=== PATIENT | male | born 1965 | race Caucasian/White ===

== ENCOUNTER → 2017-08-16 13:33 | Outpatient (CLI) | payer MEDICAID, SELFPAY ==
[2017-08-16 12:11] VITALS: BP 116/78; BMI 34.2
--- NOTE | 2017-08-16 13:50 | RAD_ITS ---
STUDY: X-RAY CHEST REASON FOR EXAM: Male, 52 years old. Shortness of breath and cough. TECHNIQUE: PA and lateral views of the chest. COMPARISON: Prior comparison studies are not available for review at this time. FINDINGS: Lungs are underexpanded. There is increased attenuation at the left lung base that may represent airspace disease or atelectasis. There is suggestion for small left-sided pleural effusion. There is perihilar interstitial thickening. There may be right upper lobe subsegmental atelectasis versus pulmonary fibrosis. Normal size heart. Normal mediastinum and shai. Normal visualized pulmonary arteries. There is atherosclerotic calcification of the aortic arch with tortuosity. Normal visualized thoracic spine. Normal visualized ribs, clavicles, and shoulders. There is no demonstrated abnormality of the visualized soft tissue structures of the upper abdomen. RAD/Chest PA and Lateral IMPRESSION: Left basilar airspace consolidation possibly representing pneumonia with small pleural effusion. Suggest radiographic follow-up after treatment to exclude neoplasia. Electronically Signed: Lupe Vaz MD at 19:48 EST , Service support ,
== END ==
PROVIDERS: Family Provider Nurse Practitioner Family; PCP Nurse Practitioner Family; Visit Provider Nurse Practitioner Acute Care
DX: R05 Cough (principal)
CPT/HCPCS: 71046

== ENCOUNTER → 2017-08-21 09:10 | Outpatient (CLI) | payer MEDICAID, SELFPAY ==
[2017-08-21 08:26] VITALS: BP 127/80
[2017-08-21 08:28] VITALS: BMI 34.2
== END ==
PROVIDERS: Visit Provider Nurse Practitioner Acute Care
DX: Z93.0 Tracheostomy status (principal)
CPT/HCPCS: 87070; 87075; 87076; 87077; 87186; 87205

== ENCOUNTER → 2017-08-30 13:12 | Outpatient (CLI) | payer MEDICAID, SELFPAY ==
[2017-08-16 12:11] VITALS: BP 116/78; BMI 34.2
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
--- NOTE | 2017-08-30 13:15 | RAD_ITS ---
STUDY: SWALLOWING STUDY REASON FOR EXAM: Male, 52 years old. Dysphagia. TECHNIQUE: The examination was performed with Speech Pathology in attendance. Under fluoroscopic observation, the patient ingested thin barium, thick barium, barium pudding, and barium coated cracker. FLUOROSCOPY TIME: 1:06 minutes/seconds. 818 fluoroscopic images were obtained. RADIOLOGIST INVOLVEMENT: Radiologist was present and providing direct supervision. COMPARISON: None. FINDINGS: The following was observed during swallowing of the various mixtures of barium: Thin Barium: There was no evidence of aspiration or laryngeal penetration. Barium Pudding: There was no evidence of aspiration or laryngeal penetration. Barium Coated Cracker: There was no evidence of aspiration or laryngeal penetration. RAD/Swallowing Function w/Video IMPRESSION: Normal tailored barium swallow study. No evidence of increased risk for aspiration. The swallow study findings were discussed with the patient by the speech pathologist at the conclusion of the examination. Please see speech pathology report for more information and recommendations. Electronically Signed: Dom Perez MD at 14:01 EST Tel [phone], Service support ,
== END ==
PROVIDERS: Family Provider Nurse Practitioner Family; PCP Nurse Practitioner Family; Visit Provider Nurse Practitioner Acute Care
DX: Z93.0 Tracheostomy status (principal)
CPT/HCPCS: 74230; 92611

== ENCOUNTER → 2017-12-05 11:28 | Outpatient (CLI) | payer MEDICAID, SELFPAY ==
--- NOTE | 2017-12-05 11:47 | EKG12_ITS ---
Test Reason : PRE-OP Blood Pressure : / mmHG Vent. Rate : 097 BPM Atrial Rate : 097 BPM P-R Int : 126 ms QRS Dur : 084 ms QT Int : 322 ms P-R-T Axes : 055 056 027 degrees QTc Int : 408 ms Normal sinus rhythm Normal ECG Confirmed by PETROS PAYNE, DAVID ([id number]), multimedia editor ROB GUAJARDO ([id number]) on 12/06/2017 11:03:31 AM Referred By: DORON Confirmed By:DAVID MORRELL MD
[2017-12-05 12:48] LABS: Hematocrit 41.7 % (40-54); Hemoglobin 15.2 g/dl (13.0-16.5); Mean Corp Hgb Conc 36.5 g/gl (32-36); Mean Corpuscular Hgb 30.5 pg (27.0-32.0); Mean Corpuscular Volume 83.6 fL (80-94); Mean Platelet Vol. 10.1 fl (6.2-12.0); Platelet Count 134 K/mm3 (150-450); RBC Distribution Width CV 13.3 % (11.6-14.6); RBC Distribution Width SD 40.2 fl (35.1-43.9); Red Blood Count 4.99 M/mm3 (4.6-6.2); White Blood Count 6.8 K/mm3 (4.4-11.0)
[2017-12-05 12:52] LABS: Scan Indicated on CBC? Y/N NO
[2017-12-05 13:07] LABS: Anion Gap 10 (5-15); BUN 11 mg/dL (7-18); BUN/Creat Ratio 10.1 RATIO (10-20); Calcium,Total 8.9 mg/dL (8.5-10.1); Chloride 104 mmol/L (98-107); Creatinine, Serum 1.09 mg/dL (0.70-1.30); EST Glomerular Filtration Rate 76 mL/min (>60); Est Glom Filt Rate - Afr Amer 92 mL/min (>60); Glucose 201 mg/dL (74-106); Potassium 3.9 mmol/L (3.5-5.1); Sodium Level 141 mmol/L (136-145)
[2017-12-05 13:17] LABS: Hemoglobin A1c 8.3 % (4.2-6.3)
== END ==
PROVIDERS: Family Provider Nurse Practitioner Family; PCP Nurse Practitioner Family; Visit Provider Physician Assistant
DX: Z01.818 Encounter for other preprocedural examination (principal); E11.9 Type 2 diabetes mellitus without complications
CPT/HCPCS: 36415; 80048; 83036; 85027; 93005

== ENCOUNTER → 2018-01-07 08:45 | Outpatient (CLI) | payer MEDICAID, SELFPAY | PROVIDERS: Family Provider Nurse Practitioner Family; PCP Nurse Practitioner Family; Visit Provider Orthopaedic Surgery | DX: Z01.812 Encounter for preprocedural laboratory examination (principal) ==

== ENCOUNTER → 2018-01-31 09:05 | Outpatient (CLI) | payer MEDICAID, SELFPAY ==
[2018-01-31 10:23] LABS: Mean Corpuscular Hgb 30.6 pg (27.0-32.0); Mean Corpuscular Volume 85.7 fL (80-94); Mean Platelet Vol. 10.5 fl (6.2-12.0); Platelet Count 143 K/mm3 (150-450); RBC Distribution Width CV 12.6 % (11.6-14.6); RBC Distribution Width SD 38.8 fl (35.1-43.9)
[2018-01-31 10:24] LABS: Mean Corp Hgb Conc 35.7 g/gl (32-36); Scan Indicated on CBC? Y/N NO
[2018-01-31 10:31] LABS: Anion Gap 9 (5-15); BUN 12 mg/dL (7-18); BUN/Creat Ratio 10.9 RATIO (10-20); Calcium,Total 9.5 mg/dL (8.5-10.1); Chloride 102 mmol/L (98-107); EST Glomerular Filtration Rate 75 mL/min (>60); Est Glom Filt Rate - Afr Amer 91 mL/min (>60); Glucose 160 mg/dL (74-106); Potassium 4.4 mmol/L (3.5-5.1); Sodium Level 141 mmol/L (136-145)
[2018-01-31 10:35] LABS: Hemoglobin A1c 6.9 % (4.2-6.3)
== END ==
PROVIDERS: Family Provider Nurse Practitioner Family; PCP Nurse Practitioner Family; Visit Provider Orthopaedic Surgery
DX: E11.9 Type 2 diabetes mellitus without complications (principal); S46.012D Strain of muscle(s) and tendon(s) of the rotator cuff of left shoulder, subsequent encounter
CPT/HCPCS: 36415; 80048; 83036; 85027

== ENCOUNTER 2018-02-17 10:55 | Day surgery (SDC) | payer MEDICAID, SELFPAY ==
[2018-02-17] VITALS (11 sets, daily range): BP systolic 128–149; BP diastolic 71–84; PULSE 16–99; RESP 16–20; TEMP 36.2–36.7; O2SAT 97–100; BMI 35.2
[2018-02-17 11:45] LABS: Bedside Glucose 140 mg/dL (70-110)
[2018-02-17] MEDS: Cefazolin 2 GM in 0.9% Normal Saline 100 ML IV (12:36)
[2018-02-17] MEDS: Bupivacaine Mpf 0.5% 30 ML VIAL (13:05)
--- NOTE | 2018-02-17 14:12 | PCM.IMDPSTOP ---
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/p injury Post-Operative Diagnosis: SAIS, AC separation, biceps tendinopathy with subluxation, healed glenoid fx and rotator cuff tear left shoulder Surgery/Procedure Performed:: ASD, Coplane distal clavicle, biceps tenotomy and rotator cuff repair left shoulder Description of Surgical Findings:: see note Estimated Blood Loss: minimal Specimen's removed: none Type of Anesthesia:: General/Regional ASA Class: ASA2 Mod Systematic Disease - Admit VTE Documentation VTE Present on Admission: No VTE Mechan Device Prophylaxis: SCD's VTE Pharm Prophylaxis ordered?: No Reason prophylaxis not ordered:: Treatment Not Indicated
--- NOTE | 2018-02-17 14:16 | OP.PN_ITS ---
Immediate Post-Op Note Date of Procedure: 02/17/18 Primary Surgeon/Physician: Sahil Serrano assistant bookkeeper: Rashel Brizuela Pre-Operative Diagnosis: Internal derangemen left shoulder with nerve damage s/ p injury Post-Operative Diagnosis: SAIS, AC separation, biceps tendinopathy with subluxation, healed glenoid fx and rotator cuff tear left shoulder Surgery/Procedure Performed:: ASD, Coplane distal clavicle, biceps tenotomy and rotator cuff repair left shoulder Description of Surgical Findings:: see note Estimated Blood Loss: minimal Specimen's removed: none Type of Anesthesia:: General/Regional ASA Class: ASA2 Mod Systematic Disease - Admit VTE Documentation VTE Present on Admission: No VTE Mechan Device Prophylaxis: SCD's VTE Pharm Prophylaxis ordered?: No Reason prophylaxis not ordered:: Treatment Not Indicated
[2018-02-17 15:05] LABS: Bedside Glucose 156 mg/dL (70-110)
[2018-02-17] MEDS: HYDROcodone Bitartrate/Apap 5/325 Tablet PO (16:32)
== END 2018-02-17 16:54 | disposition home or self-care (01) ==
LOC: SDC 10:56 → AC 10:57
PROVIDERS: Visit Provider Orthopaedic Surgery
PROC: (CPT 29827; principal; 2018-02-17 12:10)
DX: S46.012A Strain of muscle(s) and tendon(s) of the rotator cuff of left shoulder, initial encounter (principal); S43.492A Other sprain of left shoulder joint, initial encounter; S43.102A Unspecified dislocation of left acromioclavicular joint, initial encounter; S42.142A Displaced fracture of glenoid cavity of scapula, left shoulder, initial encounter for closed fracture; M75.22 Bicipital tendinitis, left shoulder; M75.42 Impingement syndrome of left shoulder; R53.1 Weakness; E11.9 Type 2 diabetes mellitus without complications; Z79.84 Long term (current) use of oral hypoglycemic drugs; Z79.52 Long term (current) use of systemic steroids; Z79.891 Long term (current) use of opiate analgesic; Z87.891 Personal history of nicotine dependence; X58.XXXA Exposure to other specified factors, initial encounter; Y93.9 Activity, unspecified; Y92.9 Unspecified place or not applicable; Y99.9 Unspecified external cause status
CPT/HCPCS: 23405; 29822; 29826; 29827; 82962; J7120; J2405

== ENCOUNTER → 2019-06-05 10:37 | Outpatient (CLI) | payer MEDICAID, SELFPAY ==
[2019-06-05 10:24] VITALS: BMI 34.2
--- NOTE | 2019-06-05 10:43 | VDLE_ITS ---
Reason For Study: RT CALF PAIN RIGHT GSV is normal. CFV is compressible, spontaneous, phasic, competent and demonstrates normal augmentation. FV is compressible, spontaneous, phasic, competent and demonstrates normal augmentation. POP V is compressible, spontaneous, phasic, competent and demonstrates normal augmentation. T/P Trunk is compressible. PTV is compressible. RT PerV is compressible. Procedure Exam performed in department. A preliminary report was called and/or faxed to DEEPTI KHALIL. Interpretation Summary Deep veins of the right lower extremity are patent and compressible segmentally. There is no evidence of right lower extremity deep vein thrombosis. Valvular competence appears intact within the proximal deep venous system on the right . The right great saphenous vein appears patent and compressible segmentally. Ordering Physician: Deepti Miranda Referring Physician: Deepti Miranda Performed By: Josefina Reece, GLORIA, RVT
== END ==
DX: M79.661 Pain in right lower leg (principal)
CPT/HCPCS: 93971

== ENCOUNTER 2020-01-04 06:52 | Day surgery (SDC) | payer MEDICAID, SELFPAY ==
[2019-06-05 10:24] VITALS: BMI 34.2
[2020-01-04] VITALS (9 sets, daily range): BP systolic 86–140; BP diastolic 56–91; PULSE 71–78; RESP 16; TEMP 36.2–36.4; O2SAT 91–100; BMI 34.8
[2020-01-04] MEDS: Lactated Ringers 1,000 ML 100 ML IV (07:26)
[2020-01-04 07:40] LABS: Bedside Glucose 177 mg/dL (70-110)
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
--- NOTE | 2020-01-04 12:47 | OP.COLON_ITS ---
Patient Name: Niall Munoz Procedure Date: 01/04/2020 12:42 PM Date of : 1965 Age: 54 Procedure: Colonoscopy Indications: Screening for colorectal malignant neoplasm Providers: Jaylene Remy MD Referring MD: Deepti Harmon [facility] Medicines: Monitored Anesthesia Care Patient Profile: This is a 54 year old male. Last Colonoscopy: none. The patient's first colonoscopy is today. Complications: No immediate complications. Procedure: Pre-Anesthesia Assessment: - Prior to the procedure, a History and Physical was performed, and patient medications and allergies were reviewed. The patient's tolerance of previous anesthesia was also reviewed. The risks and benefits of the procedure and the sedation options and risks were discussed with the patient. All questions were answered, and informed consent was obtained. Prior Anticoagulants: The patient has taken no previous anticoagulant or antiplatelet agents. ASA Grade Assessment: Per anesthesia. After reviewing the risks and benefits, the patient was deemed in satisfactory condition to undergo the procedure. After I obtained informed consent, the scope was passed under direct vision. Throughout the procedure, the patient's blood pressure, pulse, and oxygen saturations were monitored continuously. The colonoscopy was performed without difficulty. The patient tolerated the procedure well. The quality of the bowel preparation was adequate. Findings: The perianal and digital rectal examinations were normal. The exam was otherwise without abnormality on direct and retroflexion views. Impression: - The examination was otherwise normal on direct and retroflexion views. - No specimens collected. Recommendation: - Discharge patient to home. - Resume previous diet. - Continue present medications. - Repeat colonoscopy in 10 years for screening purposes. Procedure Code(s): --- Professional --- 65411, Colonoscopy, flexible; diagnostic, including collection of specimen(s) by brushing or washing, when performed (separate procedure) Diagnosis Code(s): --- Professional --- Z12.11, Encounter for screening for malignant neoplasm of colon CPT copyright 2017 [employer]. All rights reserved. The codes documented in this report are preliminary and upon platform inspector review may be revised to meet current compliance requirements. MD Jaylene Higgins MD 01/04/2020 12:47:02 PM This report has been signed electronically. Number of Addenda: 0 Note Initiated On: 01/04/2020 12:42 PM
--- NOTE | 2020-01-04 12:47 | OP.CCLET_ITS ---
01/04/2020 Deepti Harmon [facility] Re : Colonoscopy procedure for Niall Kelly [facility] This procedure was performed on Saturday, January 04, 2020. My impressions and recommendations are as follows: Impressions : - The examination was otherwise normal on direct and retroflexion views. - No specimens collected. Recommendations : - Discharge patient to home. - Resume previous diet. - Continue present medications. - Repeat colonoscopy in 10 years for screening purposes. My findings are described in the full procedure note, which is enclosed. If I can be of further assistance, please feel free to contact me at Doctor phone number(s): , Work: . Sincerely, MD Jaylene Higgins MD 01/04/2020 12:47:02 PM This report has been signed electronically.
== END 2020-01-04 09:25 | disposition home or self-care (01) ==
LOC: EN 06:54 → AC 06:55
PROVIDERS: Anesthesiology; Visit Provider Surgery
PROC: 0DJD8ZZ Inspection of Lower Intestinal Tract, Via Natural or Artificial Opening Endoscopic (ICD-10-PCS; CPT 45378; principal; 2020-01-04 07:55)
DX: Z12.11 Encounter for screening for malignant neoplasm of colon (principal); Z87.891 Personal history of nicotine dependence; E11.9 Type 2 diabetes mellitus without complications; R13.10 Dysphagia, unspecified; Z11.59 Encounter for screening for other viral diseases
CPT/HCPCS: 45378; 82962; 87635; G2023; J7120; U0003

== ENCOUNTER 2020-04-11 18:57 | Inpatient (IN) | payer MEDICAID, SELFPAY ==
[2020-01-04 07:10] VITALS: BMI 34.8
[2020-04-11] VITALS (18 sets, daily range): BP systolic 101–146; BP diastolic 61–85; PULSE 87–107; RESP 11–23; TEMP 36.4–36.9; O2SAT 93–100; BMI 36.1; BMI 35.5
--- NOTE | 2020-04-11 19:11 | EKG12_ITS ---
Test Reason : CP Blood Pressure : / mmHG Vent. Rate : 106 BPM Atrial Rate : 106 BPM P-R Int : 126 ms QRS Dur : 070 ms QT Int : 314 ms P-R-T Axes : 041 058 027 degrees QTc Int : 417 ms Sinus tachycardia Otherwise normal ECG Confirmed by RICA PAYNE, TANGELA ([id number]), film and video editor PAOLA SALGUERO ([id number]) on 04/19/2020 8:56:37 AM Referred By: Osmin Garza Confirmed By:TASHIA STRAUSS MD
--- NOTE | 2020-04-11 19:12 | ED.DCSUM_ITS ---
History of Present Illness Chief Complaint: Chest Pain Informant: Patient Onset: Yesterday Narrative: Patient presents for evaluation of chest pain initially started yesterday at rest in the afternoon. States it was mild went away around 8 PM. This morning while at work around 8 AM things started to return. He states with his work activities symptoms were worsening. 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 He states severe heaviness with nausea and sweats. He states he threw up a couple times. He went home at 5 PM, however upon arrival ED symptoms are subsiding. However still states symptoms are 5 out of 10. Denies any radicular symptoms. Denies any cough. He has history of diabetes remote tobacco quitting in 2018. States father had [place] in his 50s. Denies hypertension or hypercholesterolemia. He had a stress test last time in 2001. There is no heart caths in the past. States currently he is not nauseated. Prior similar symptoms: Yes Past Medical History - Allergies and Home Meds Allergies/Adverse Reactions: Allergies No Known Allergies Allergy (Verified 04/11/20 18:58) [facility] - Past Medical History: - - Diabetes Smoking Status: Former smoker Review of Systems General: Denies: Chills, Fever, Sweats Eyes: Denies: Visual changes - bilaterally, Diplopia ENT: Denies: Rhinorrhea, Sore throat Cardiovascular: Reports: Chest pain. Denies: Palpitations Respiratory: Reports: Dyspnea. Denies: Cough, Dyspnea on exertion Gastrointestinal: Denies: Abdominal pain, Nausea, Vomiting, Diarrhea, Melena, Hematochezia Genitourinary: Denies: Dysuria, Hematuria, Frequency Musculoskeletal: Denies: Back pain, Extremity Pain Skin: Denies: Rash, Wounds Neurological: Denies: Headache, Weakness, Numbness Physical Exam Vital Signs/Narrative: Vital Signs Temp Pulse Resp BP Pulse Ox 04/11/20 19:01 100 04/11/20 18:58 98.5 F 107 H 18 123/77 H 100 Inital Vital Signs reviewed: Yes General: Well nourished, Well developed, No Acute Distress, - - Mild clammy Head: Normocephalic, Atraumatic Eyes: Perrl, EOMI ENT: Moist mucous membranes, No rhinorrhea Neck: Supple, Nontender Cardiovascular: Regular rate, Regular rhythm, No murmurs Respiratory: No distress, CTA bilaterally, Chest nontender Abdomen: Soft, Nontender, Nondistended, Normal bowel sounds Back: Nontender, Normal Inspection Extremities: Nontender, No edema Skin: Normal color, No rash Neurological: Alert, Oriented x3, Cranial nerves II-XII grossly intact, Normal Strength, Normal Sensation Psychological: Normal affect, Normal Mood Diagnostic/Tx/Re-eval Clinical Impression(s) from Imaging Studies Chest X-Ray 04/11/20 19:20 IMPRESSION: No acute pulmonary pathology of the chest. Left lung base pleural plaque. Left rib and shoulder injuries. Electronically Signed: Theron Deleon DO at 20:39 EDT Tel [phone], Service support , Abnormal Lab Results 04/11/20 04/11/20 04/11/20 19:04 19:04 19:04 WBC 11.8 H RBC 4.50 L Hgb 14.5 Hct 40.8 MCV 90.7 MCH 32.2 H MCHC 35.5 RDW Std Deviation 40.8 RDW Coeff of Gonzalez 12.6 Plt Count 144 L MPV 10.8 Immature Gran % (Auto) 0.600 Neut % (Auto) 84.5 H Lymph % (Auto) 7.8 L [place] % (Auto) 6.7 Eos % (Auto) 0.1 Baso % (Auto) 0.3 Absolute Neuts (auto) 10.0 H Absolute Lymphs (auto) 0.92 Nucleated RBC % 0 PT 14.5 INR 1.2 APTT 27.9 Sodium 137 Potassium 4.6 Chloride 104 Carbon Dioxide 26.0 Anion Gap 7 BUN 24 H Creatinine 2.59 H Estim Creat Clear Calc 30.11 Est GFR (MDRD) Af Amer 34 L Est GFR (MDRD) Non-Af 28 L BUN/Creatinine Ratio 9.3 L Glucose 240 H Calcium 9.4 Troponin I < 0.015 - EKG Initial EKG Interpretation: Sinus Rhythm - Sinus rate of 106, there is no ST changes. Isolated T wave inversion in leads III. - Medical Decision Making Patient EKG nonspecific T wave inversion in leads III. Does have concerning symptoms for angina along with risk factors. Cardiac work-up negative troponin at this time creatinine 2.59 up from comparison in 2018 which was normal. He had a couple emesis today. Been tolerating oral intake. Initially given 1 nitroglycerin after aspirin his blood pressure dropped to the 90s. He did have fluids running. Blood pressure improved to the 110s, still had pressure of 2-3, nitro drip was started which improved his symptoms. There is no titration needed. Blood pressure remained stable. Patient's heart score is a 5. I spoke with maintenance service supervisor Dr. Sotelo due to angina concerns and noted his RAUL. With a normal troponin reports no heparin at this time, unless troponin becomes elevated. He requires hydration throughout the night, he will see the patient in the morning for management plans. I will speak with hospitalist for admission. - Critical Care Time Critical care time (excluding procedures): 30-74 minutes, Discussing w/Co nsultants, Arranging Admission or Transfer ED Disposition - Plan for ED Patient: Disposition: Acute Care Hospital [facility], [place] Diagnosis: Chest pain, angina, RAUL (acute kidney injury) [facility]: [facility]Deepti Harmon [Primary Care Provider] -
--- NOTE | 2020-04-11 19:20 | RAD_ITS ---
STUDY: X-RAY CHEST REASON FOR EXAM: Male, 54 years old. CHEST PAIN THAT STARTED YESTERDAY, WORSENED TODAY, SOB, N/V. TECHNIQUE: Frontal view COMPARISON: 08/16/2017 FINDINGS: The lungs are not fully expanded. Probable left basilar calcified pleural plaque. Normal size heart. Normal mediastinum and shai. Normal visualized pulmonary arteries. Normal visualized aortic arch and descending thoracic aorta. Normal visualized thoracic spine. Old left rib fractures. Depressed acromion at the AC joint is again noted at the left shoulder. Old left scapular injury. There is no demonstrated abnormality of the visualized soft tissue structures of the upper abdomen. RAD/Chest 1 View (Portable) IMPRESSION: No acute pulmonary pathology of the chest. Left lung base pleural plaque. Left rib and shoulder injuries. Electronically Signed: Theron Deleon DO at 20:39 EDT Tel [phone], Service support ,
[2020-04-11 19:25] LABS: Absolute Lymphocyte Count 0.92 X10^3/uL (0.83-4.51); Basophil# 0.04 X10^3/uL; Basophil% 0.3 % (0-1); Eosinophil# 0.01 X10^3/uL; Eosinophils% 0.1 % (0-5); Hematocrit 40.8 % (40-54); Hemoglobin 14.5 g/dL (13.0-16.5); Lymphocyte # 0.92 X10^3/ul (4.0); Lymphocyte % 7.8 % (19-41); Mean Corp Hgb Conc 35.5 g/dL (32-36); Mean Corpuscular Hgb 32.2 pg (27.0-32.0); Mean Corpuscular Volume 90.7 fL (80-94); Mean Platelet Vol. 10.8 fl (6.2-12.0); Monocyte# 0.79 X10^3/uL; Monocyte% 6.7 % (0-10); NRBC Flagged by Analyzer 0 % (0-5); Neutrophil # 10.01 X10^3/uL (2.7-7.7); Neutrophil % 84.5 % (47-70); Platelet Count 144 K/mm3 (150-450); RBC Distribution Width CV 12.6 % (11.6-14.6); RBC Distribution Width SD 40.8 fl (35.1-43.9); White Blood Count 11.8 K/mm3 (4.4-11.0)
[2020-04-11 19:30] LABS: International Normalized Ratio 1.2; Prothrombin Time (Protime)PT. 14.5 SECONDS (11.7-14.9)
[2020-04-11 19:31] LABS: Partial Thromboplast Time 27.9 Seconds (24.1-36.2)
[2020-04-11 19:36] LABS: Anion Gap 7 (5-15); BUN 24 mg/dL (7-18); BUN/Creat Ratio 9.3 RATIO (10-20); Calcium,Total 9.4 mg/dL (8.5-10.1); Chloride 104 mmol/L (98-107); Creatinine, Serum 2.59 mg/dL (0.70-1.30); EST Glomerular Filtration Rate 28 mL/min (>60); Est Glom Filt Rate - Afr Amer 34 mL/min (>60); Estimated Creatinine Clearance 30.11 ml/min; Glucose 240 mg/dL (74-106); Potassium 4.6 mmol/L (3.5-5.1); Sodium Level 137 mmol/L (136-145)
[2020-04-11] MEDS: 0.9% Normal Saline 1,000 ML 100 ML IV ×2 (19:38→22:59)
[2020-04-11] MEDS: Nitroglycerin SL (ED/IMG/CATH) 0.4 MG TABLET SUBLINGUAL (19:38)
[2020-04-11] MEDS: Aspirin 81 MG TAB.CHEW 324 MG PO (19:38)
--- NOTE | 2020-04-11 19:46 | NURSING ---
ONLY GIVEN 1 DOSE OF NITRO DUE TO BLOOD PRESSURE DROPPING TO 99/56 ON REASSESSMENT AFTER FIRST DOSE. DR. ZAPATA INFORMED
[2020-04-11] MEDS: Nitroglycerin Infusion 250 ML 3 MG CONT INF (20:28)
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
--- NOTE | 2020-04-11 22:28 | EKG12_ITS ---
Test Reason : AM EKG Blood Pressure : / mmHG Vent. Rate : 079 BPM Atrial Rate : 079 BPM P-R Int : 110 ms QRS Dur : 084 ms QT Int : 352 ms P-R-T Axes : 031 052 027 degrees QTc Int : 403 ms Sinus rhythm with short MS Otherwise normal ECG When compared with ECG of 12-APR-2020 06:04, MANUAL COMPARISON REQUIRED, DATA IS UNCONFIRMED Confirmed by RICA PAYNE, TANGELA ([id number]), continuity editor PAOLA SALGUERO ([id number]) on 04/19/2020 9:16:45 AM Referred By: Osmin Garza Confirmed By:TASHIA STRAUSS MD
[2020-04-12] VITALS (20 sets, daily range): BP systolic 97–123; BP diastolic 55–93; PULSE 73–87; RESP 6–23; TEMP 36.6–37.2; O2SAT 93–100
[2020-04-12 00:11] LABS: Bedside Glucose 131 mg/dL (70-110)
[2020-04-12 01:57] LABS: Absolute Lymphocyte Count 1.91 X10^3/uL (0.83-4.51); Absolute Neutrophil Count 4.9 X10^3/uL (2.0-7.7); Basophil# 0.05 X10^3/uL; Basophil% 0.6 % (0-1); Eosinophil# 0.05 X10^3/uL; Eosinophils% 0.6 % (0-5); Hematocrit 35.1 % (40-54); Hemoglobin 12.6 g/dL (13.0-16.5); Lymphocyte # 1.91 X10^3/ul (4.0); Lymphocyte % 24.6 % (19-41); Mean Corp Hgb Conc 35.9 g/dL (32-36); Mean Corpuscular Volume 89.1 fL (80-94); Mean Platelet Vol. 10.6 fl (6.2-12.0); Monocyte# 0.89 X10^3/uL; Monocyte% 11.5 % (0-10); NRBC Flagged by Analyzer 0 % (0-5); Neutrophil # 4.85 X10^3/uL (2.7-7.7); Neutrophil % 62.4 % (47-70); Platelet Count 119 K/mm3 (150-450); RBC Distribution Width CV 12.2 % (11.6-14.6); RBC Distribution Width SD 39.9 fl (35.1-43.9); Red Blood Count 3.94 M/mm3 (4.6-6.2); White Blood Count 7.8 K/mm3 (4.4-11.0)
[2020-04-12 02:23] LABS: Anion Gap 6 (5-15); BUN 27 mg/dL (7-18); Calcium,Total 8.5 mg/dL (8.5-10.1); Chloride 107 mmol/L (98-107); Cholesterol 78 mg/dL (200); Creatinine, Serum 1.93 mg/dL (0.70-1.30); EST Glomerular Filtration Rate 39 mL/min (>60); Est Glom Filt Rate - Afr Amer 47 mL/min (>60); Glucose 107 mg/dL (74-106); High Density Lipoprotein 37 mg/dL; Potassium 3.6 mmol/L (3.5-5.1); Sodium Level 141 mmol/L (136-145); Triglycerides 51 mg/dL; Very Low Density Lipoprotein 10 mg/dL (5-40)
--- NOTE | 2020-04-12 05:55 | EKG12_ITS ---
Test Reason : AM EKG Blood Pressure : / mmHG Vent. Rate : 081 BPM Atrial Rate : 081 BPM P-R Int : 132 ms QRS Dur : 082 ms QT Int : 368 ms P-R-T Axes : 040 053 030 degrees QTc Int : 427 ms Normal sinus rhythm Normal ECG When compared with ECG of 11-APR-2020 22:54, MANUAL COMPARISON REQUIRED, DATA IS UNCONFIRMED Confirmed by RICA PAYNE, TANGELA ([id number]), editor trade journal PAOLA SALGUERO ([id number]) on 04/19/2020 9:19:40 AM Referred By: Osmin Garza Confirmed By:TASHIA STRAUSS MD
[2020-04-12] MEDS: Aspirin E.C. 81 MG Tablet PO (06:10)
[2020-04-12 06:26] LABS: Bedside Glucose 123 mg/dL (70-110)
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
--- NOTE | 2020-04-12 07:09 | ECHOCS_ITS ---
Reason For Study: Chest pain Procedure This was a 2D Doppler, Color Flow transthoracic echocardiogram. The study was technically difficult. Exam performed portable in patient room. Left Ventricle Normal LV size. Left ventricular systolic function is normal. The estimated ejection fraction is 60 %. Stage 1 diastolic dysfunction. No regional wall motion abnormalities noted. Right Ventricle Normal RV size. Normal systolic function. Atria Normal left atrium. Normal right atrium. Mitral Valve Normal mitral valve. Tricuspid Valve The tricuspid valve is not well visualized. Aortic Valve The aortic valve is not well visualized. Pulmonic Valve Normal pulmonic valve. Great Vessels Normal aortic root. The pulmonary artery is normal size. Normal inferior vena cava. Pericardium/Pleural No pericardial effusion. Medication Performed a rapid injection of agitated mix of 9 cc saline and 1cc air to assess for atrial septal defect. Diluted definity 3ml given slow IV push to enhance endocardial definition. MMode/2D Measurements & Calculations LVIDd: 4.6 cm IVSd: 1.2 cm Ao root diam: 3.2 cm LVIDs: 3.1 cm LVPWd: 1.0 cm RVDd: 3.3 cm FS: 33.1 % LAV(MOD-bp): 25.3 ml LA A4 area: 10.0 cm2 LA dimension(2D): 3.7 cm LAV(MOD-bp) Indexed: 12.2 ml/m2 LAV(MOD-sp2): 31.8 ml LAV(MOD-sp4): 19.5 ml RA A4 area: 8.4 cm2 Doppler Measurements & Calculations MV E max eyla: 74.8 cm/sec Lat Peak E' Eyal: 12.4 cm/sec Med Peak E' Eyal: 8.7 cm/sec MV A max eyal: 92.3 cm/sec E/E' lat: 6.0 E/E' med: 8.6 MV E/A: 0.81 Ao V2 max: 121.2 cm/sec LV V1 max: 89.2 cm/sec PA V2 max: 99.1 cm/sec Ao max P.9 mmHg LV V1 max P.2 mmHg Interpretation Summary Normal LV size. Left ventricular systolic function is normal. The estimated ejection fraction is 60 %. Stage 1 diastolic dysfunction. Contrast injection was performed. Ordering Physician: Jaydon Sotelo Referring Physician: Osmin Garza Performed By: Iris Escobar RDCS
[2020-04-12 07:55] LABS: CRP, High Sensitivity Cardiac 7.83 mg/L
[2020-04-12] MEDS: 0.9% Normal Saline 1,000 ML 100 ML IV ×2 (08:51→18:01)
[2020-04-12] MEDS: Enoxaparin 40 MG/0.4 ML Syringe SC (09:05)
--- NOTE | 2020-04-12 10:33 | CASEMGMT ---
According to the [facility] website, the following are in-network tertiary facilities: [facility], [place], [facility], [place], [facility], [facility], [place], [facility], and . Russ HENSLEY CM
--- NOTE | 2020-04-12 10:44 | CASEMGMT ---
SHELLIE BECERRA assessment: Face to Face with patient for initial transition planning/care coordination assessment. SHELLIE BECERRA introduced self and role at [facility], pt voices understanding and consents to assessment at this time. Pt is sitting up in bed in no distress at this time. Pt is A/Ox4 at this time and answers all questions appropriately at this time. Care providers, pharmacy, and demographics verified at this time. Presentation: Chest pain that started yesterday, worsened today, SOB, N/V Admitting dx: Unstable angina PCP: Deepti Harmon Specialists: Pt states no current specialists. [facility]erred [facility]acy: [facility] Insurance: [facility] Prescription Benefit: [facility] Living Will/HPOA: Pt states does not have LW/HPOA and declines need for AD info at this time. LNOK: Rosa Munoz, mother Living Arrangements: Pt states lives with mother in mobile home with 3 steps in and states no concerns at home at this time. Pt states is independent with ADL's. Transportation: Pt states drives self and states no transportation concerns at this time. DME/HHC: Pt states no current DME or need for any at this time. Pt states no hx of HHC or SNF in the past. Pt states no concerns with going home at time of discharge. Pt is currently unemployed. Pt states no hx of smoking cigarettes but states does drink ETOH occasionally. Pt voices no further concerns/needs at this time. CM to follow for any further discharge planning/needs. Advised pt to ask for CM if any further questions/concerns/needs arise, voices understanding. Pt Goal: Home Plan[place] SHELLIE BECERRA
[2020-04-12] MEDS: Insulin Lispro 100 UNIT/ML INSULN.PEN SC (11:14)
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
[2020-04-12 11:25] LABS: Bedside Glucose 182 mg/dL (70-110)
[2020-04-12 13:53] LABS: Urine Sodium 118 mmol/L (Not Establ.)
[2020-04-12] MEDS: Isosorbide DN 10 MG Tablet PO ×2 (14:11→22:29)
[2020-04-12 17:10] LABS: Bedside Glucose 134 mg/dL (70-110)
[2020-04-12] MEDS: Atorvastatin Calcium 10 MG Tablet PO (22:29)
[2020-04-12 22:51] LABS: Bedside Glucose 158 mg/dL (70-110)
[2020-04-13] VITALS (16 sets, daily range): BP systolic 102–124; BP diastolic 62–96; PULSE 73–88; RESP 14–18; TEMP 36.7–36.8; O2SAT 93–98
[2020-04-13] MEDS: 0.9% Normal Saline 1,000 ML 100 ML IV (04:05)
[2020-04-13 05:41] LABS: Anion Gap 2 (5-15); BUN 18 mg/dL (7-18); BUN/Creat Ratio 16.7 RATIO (10-20); Calcium,Total 8.1 mg/dL (8.5-10.1); Chloride 107 mmol/L (98-107); Creatinine, Serum 1.08 mg/dL (0.70-1.30); EST Glomerular Filtration Rate 76 mL/min (>60); Est Glom Filt Rate - Afr Amer 92 mL/min (>60); Glucose 127 mg/dL (74-106); Potassium 4.2 mmol/L (3.5-5.1); Sodium Level 139 mmol/L (136-145)
--- NOTE | 2020-04-13 05:55 | EKG12_ITS ---
Test Reason : CP ADMISSION Blood Pressure : / mmHG Vent. Rate : 088 BPM Atrial Rate : 088 BPM P-R Int : 130 ms QRS Dur : 084 ms QT Int : 356 ms P-R-T Axes : 025 045 020 degrees QTc Int : 430 ms Normal sinus rhythm Normal ECG When compared with ECG of 05-DEC-2017 11:55, No significant change was found Confirmed by RICA PAYNE, TANGELA ([id number]), copy editor PAOLA SALGUERO ([id number]) on 04/19/2020 9:19:53 AM Referred By: Osmin Garza Confirmed By:TASHIA STRAUSS MD
[2020-04-13] MEDS: Aspirin E.C. 81 MG Tablet PO (06:05)
[2020-04-13] MEDS: Isosorbide DN 10 MG Tablet PO (06:05)
[2020-04-13 07:00] LABS: Bedside Glucose 131 mg/dL (70-110)
--- NOTE | 2020-04-13 07:49 | NURSING ---
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
--- NOTE | 2020-04-13 09:38 | PN.CARD_ITS ---
Subjectve: pt seen and evaluated Objective: Vital Signs Temp Pulse Resp BP Pulse Ox 98.1 F 79 18 123/74 H 93 04/13/20 06:00 04/13/20 07:00 04/13/20 06:00 04/13/20 06:00 04/13/20 07:57 Oxygen Flow Rate (L/min) 2 Oxygen Delivery Method Room Air Weight: 220 lb 0.341 oz Body Mass Index (BMI) 35.5 Finger Stick Blood Glucose 156 Intake and Output for Last 24 Hours 04/11/20 04/12/20 04/13/20 23:59 23:59 23:59 Intake Total 580.77 / 582.27 3328.34 / 3328.34 405 / 405 Output Total 0 / 0 0 / 0 Balance 580.77 / 582.27 3328.34 / 3328.34 405 / 405 General: Awake, Alert, Oriented x 3 HEENT: PERRL, EOMI, Sclera Non Icteric Neck: Supple, Good ROM, No Lymph Node Enlargement Lungs: Clear to auscultation Cardiovascular: Regular Rhythm, Normal S1, Normal S2, No Murmurs, No Rubs, No Gallops Vascular: No Carotid Bruits, Normal Femoral Pulses, Normal Radial Pulses, Normal Dorsalis Pedal Pulse, Normal Posterior Tibial Pulses Abdomen: Bowel Sounds Present, Soft, Non Tender, No HSM, No Organomegaly Extremities: No Cyanosis, No Clubbing, No edema Neurological: No Focal Motor or Sensory Deficit 04/13/20 05:00: Sodium 139, Potassium 4.2, Chloride 107, Carbon Dioxide 30.0, Anion Gap 2 L, BUN 18, Creatinine 1.08, Est GFR (MDRD) Af Amer 92, Est GFR (MDRD) Non-Af 76, BUN/Creatinine Ratio 16.7, Glucose 127 H, Calcium 8.1 L Rhythm: EKG: ECHO: Stress Test: Cardiac Cath: PCI: CT Surgery: Holter monitor: EPS: PPM: CXR: Chest CT Scan: Medical Necessity - Tobacco Use Smoking Status: Former smoker Assessment/Plan 1. Chest pain * The etiology of the above is not entirely clear. There is some features which are atypical. His cardiac enzymes are thus far negative. His EKG changes may be more suggestive of pericarditis rather than unstable angina. * Cardiac catheterization today demonstrated essentially normal coronary arteries. * With his elevated high-sensitivity C-reactive protein I strongly suspect that this is pericarditis. * Will discontinue colchicine and start nonsteroidals for a week. * Patient can be discharged today and follow-up with an outpatient physician. * Thank you for allowing me to participate in the care of your patient. Please don't hesitate to call if any issues arise.
--- NOTE | 2020-04-13 09:45 | CL.D_ITS ---
Patient Name: RONALD IQBAL Study Date: 04/13/2020 Performing: Jaydon Sotelo MD Ht: 66 inches 168 cm : 1965 Wt: 220.8 lbs 100 kg Age: 54 Gender: male BSA: 2.09 PROCEDURE(S) PERFORMED OT45-FXL/COR/LV CLINICAL PROFILE AND INDICATIONS Indications: Suspected CAD Heart Failure: None Stress/Imaging Stress/Image Study Performed: No CAD Presentations: Stable angina. CONCLUSIONS Normal coronary arteries Normal LV size, wall motion,and systolic function RECOMMENDATIONS Medical therapy DESCRIPTION OF PROCEDURE The patient arrived to the procedure lab. The risks and benefits of the procedure as well as a full d escription of our services here and current unavailability of surgical backup were fully explained to the patient and/or their significant other prior to the catheterization. The Timeout was completed, verifying the correct patient and procedure. The patient's procedural site was prepped and draped in the usual fashion. Local anesthetic was given subcutaneously to right radial region with Lidocaine 2% . Using a modified Seldinger technique, arterial access was obtained via the right radial artery, a 6 Fr sheath was inserted. Left Coronary Artery selective angiography was performed in multiple views u sing a 5 Fr. 4.0 [place] catheter. Right Coronary Artery selective angiography was then performed in mu ltiple views using a 5 Fr. 4.0 [place] catheter. Left Ventriculography was performed in MARQUEZ projection using a 5 Fr. Pig[place] catheter. LV to AO pullback pressures were then recorded.The arterial sheath was pulled and a TR Band was applied for hemostasis. 12cc of air CORONARY ANGIOGRAPHY DOMINANCE: Right Dominant LEFT HEART ASSESSMENT Left Ventricular Ejection Fraction: by LV Gram 60 % Normal LV wall motion Normal Left Ventricular systolic function Normal Left Ventricular systolic function LEFT MAIN: Angiographically normal LEFT ANTERIOR DESCENDING ARTERY: Angiographically normal CIRCUMFLEX ARTERY: Angiographically normal RIGHT CORONARY ARTERY: Angiographically normal COMPLICATIONS No Complications PROCEDURE MEDICATIONS Fentanyl 50 mcg IV Versed 1 mg IV Oxygen: 2 L/min via nasal cannula Heparin diluted in 23cc Heparinized saline. Patient given 10cc IA of this solution. 04/13/2020 09:18: 31 Verapamil 2.5mg, Ntg 100mcgs, 2000 units of Heparin diluted in 23cc Heparinized saline. Patient give n 10cc IA of this solution. 04/13/2020 09:18:31 SUMMARY OF HEMODYNAMIC DATA Time AIR REST ECG 09:03:12 AO 108/67 (84) SA 09:20:55 LV 112/3, 24 09:32:16 LV 102/2, 20 09:33:06 LVp 99/48, 61 09:33:16 AOp 119/69 (94) 09:33:21 Signed By Jaydon Sotelo MD On 04/13/2020 9:45:04 AM Jaydon Sotelo MD
--- NOTE | 2020-04-13 11:08 | DCINST_ITS ---
- Discharge Diagnoses Current Active Problems: Current Active and Chronic Problems (Last Reviewed 04/12/20 @ 02:[address] Osmin Garza MD) Chest pain (Acute) RAUL (acute kidney injury) (Acute) You will use the following diet at home:: Calorie/Carbohydrate Controlled (specify 1200, 1400, etc) - 1800 LUIS Your food should be the consistency of: Regular Your liquids should be the consistency of: Regular/Thin Discharge Activity: Return to Normal Activity Weight Bearing Status: Full weight bearing Allergies/Adverse Reactions: Allergies No Known Allergies Allergy (Verified 04/11/20 18:58) Medications to take at Discharge glimepiride 2 mg tablet 2 mg PO BID tab 08/16/17 Ergocalciferol [Vitamin D] 50,000 unit PO GLASS 04/11/20 Meloxicam [Mobic] 15 mg PO DAILY #30 tab 04/13/20 Metformin HCl 1,000 mg PO BID #0 04/13/20 The following prescriptions were given: Meloxicam [Mobic] 15 mg PO DAILY #30 tab Transmission Status: Pending to [id number] - Please follow up with your Primary Care Physician in: IN 2-3 WEEKS Test Results: Test results from this visit will be discussed in further detail at your follow- up appointment, if applicable. Please Follow Up With: Jaydon Sotelo MD
[2020-04-13 11:40] LABS: Bedside Glucose 128 mg/dL (70-110)
--- NOTE | 2020-04-13 12:03 | PHA.DC.MC ---
Pharmacy Service has performed discharge medication reconciliation and counseling for this patient. 1. MELOXICAM 15MG PO DAILY X 1 WEEK, THEN IF CHEST PAIN PERSISTS, MAY TAKE FOR 1 MORE WEEK The patient's discharge medication list was reviewed for discrepancies and discrepancies were resolved. Home Medications glimepiride 2 mg tablet 2 mg PO BID tab 08/16/17 Ergocalciferol [Vitamin D] 50,000 unit PO GLASS 04/11/20 Meloxicam [Mobic] 15 mg PO DAILY #30 tab 04/13/20 Metformin HCl 1,000 mg PO BID #0 04/13/20 The patient was counseled on the following discharge medications and changes in medications for homegoing were reviewed. The Reason for Use, instructions for use, and potential side effects were reviewed for all new medications. The patient's questions regarding all of their medications were answered. The patient was able to verbally demonstrate an understanding of their discharge medications. Patient counseled by senior pharmacy technician, Dinora.
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
== END 2020-04-13 14:09 | disposition home or self-care (01) | DRG 192 ==
LOC: ED 21:37 → PCU 22:33
PROVIDERS: Internal Medicine Cardiovascular Disease; Nurse Practitioner Family; Admitting Provider Hospitalist; Emergency Provider Emergency Medicine; Referring Provider Hospitalist; Visit Provider Internal Medicine
DX: I31.9 Disease of pericardium, unspecified (principal); Z87.891 Personal history of nicotine dependence; Z82.49 Family history of ischemic heart disease and other diseases of the circulatory system; E11.65 Type 2 diabetes mellitus with hyperglycemia; N17.9 Acute kidney failure, unspecified; Z68.36 Body mass index [BMI] 36.0-36.9, adult; E66.9 Obesity, unspecified; I25.10 Atherosclerotic heart disease of native coronary artery without angina pectoris
CPT/HCPCS: 36415; 71045; 80048; 80061; 82570; 82962; 84300; 84484; 85025; 85610; 85730; 86141; 93005; 93306; 93458; 99152; 99153; 99285; J7030; Q9957; Q9967; A4216; C1769; C1894; C8929

== ENCOUNTER → 2020-04-19 08:26 | Outpatient (CLI) | payer MEDICAID, SELFPAY ==
[2020-04-11 22:29] VITALS: BMI 35.5
[2020-04-19 08:58] LABS: Absolute Neutrophil Count 5.7 X10^3/uL (2.0-7.7); Basophil# 0.03 X10^3/uL; Basophil% 0.4 % (0-1); Eosinophils% 1.3 % (0-5); Hematocrit 41.3 % (40-54); Hemoglobin 14.6 g/dL (13.0-16.5); Lymphocyte % 17.5 % (19-41); Mean Corp Hgb Conc 35.4 g/dL (32-36); Mean Corpuscular Volume 90.6 fL (80-94); Mean Platelet Vol. 10.5 fl (6.2-12.0); Monocyte# 0.78 X10^3/uL; Monocyte% 9.8 % (0-10); NRBC Flagged by Analyzer 0 % (0-5); Neutrophil # 5.66 X10^3/uL (2.7-7.7); Neutrophil % 70.6 % (47-70); Platelet Count 145 K/mm3 (150-450); RBC Distribution Width CV 12.4 % (11.6-14.6); RBC Distribution Width SD 40.4 fl (35.1-43.9); Red Blood Count 4.56 M/mm3 (4.6-6.2)
[2020-04-19 09:22] LABS: Anion Gap 4 (5-15); BUN 24 mg/dL (7-18); BUN/Creat Ratio 18.5 RATIO (10-20); Calcium,Total 9.2 mg/dL (8.5-10.1); Chloride 104 mmol/L (98-107); EST Glomerular Filtration Rate 61 mL/min (>60); Est Glom Filt Rate - Afr Amer 74 mL/min (>60); Glucose 138 mg/dL (74-106); Potassium 4.3 mmol/L (3.5-5.1); Sodium Level 137 mmol/L (136-145)
== END ==
PROVIDERS: Nurse Practitioner Family
DX: N17.9 Acute kidney failure, unspecified (principal)
CPT/HCPCS: 36415; 80048; 85025

== ENCOUNTER → 2020-06-13 08:44 | Outpatient (CLI) | payer MEDICAID, SELFPAY ==
[2020-04-11 22:29] VITALS: BMI 35.5
[2020-06-13 09:15] LABS: Absolute Lymphocyte Count 1.25 X10^3/uL (0.83-4.51); Absolute Neutrophil Count 4.6 X10^3/uL (2.0-7.7); Basophil# 0.05 X10^3/uL; Basophil% 0.7 % (0-1); Eosinophil# 0.12 X10^3/uL; Eosinophils% 1.8 % (0-5); Hematocrit 40.4 % (40-54); Hemoglobin 14.6 g/dL (13.0-16.5); Lymphocyte # 1.25 X10^3/ul (4.0); Lymphocyte % 18.7 % (19-41); Mean Corp Hgb Conc 36.1 g/dL (32-36); Mean Corpuscular Hgb 32.7 pg (27.0-32.0); Mean Corpuscular Volume 90.4 fL (80-94); Mean Platelet Vol. 10.8 fl (6.2-12.0); Monocyte# 0.59 X10^3/uL; Monocyte% 8.8 % (0-10); NRBC Flagged by Analyzer 0 % (0-5); Neutrophil # 4.64 X10^3/uL (2.7-7.7); Neutrophil % 69.6 % (47-70); Platelet Count 124 K/mm3 (150-450); RBC Distribution Width CV 11.9 % (11.6-14.6); RBC Distribution Width SD 38.6 fl (35.1-43.9); Red Blood Count 4.47 M/mm3 (4.6-6.2); White Blood Count 6.7 K/mm3 (4.4-11.0)
[2020-06-13 09:37] LABS: AST(SGOT) 22 U/L (15-37); Alanine Aminotransfer ALT/SGPT 43 U/L (16-61); Albumin, Serum 3.8 g/dL (3.2-5.0); Alkaline Phosphatase 68 U/L (45-117); BUN 15 mg/dL (7-18); Calcium,Total 8.7 mg/dL (8.5-10.1); Chloride 105 mmol/L (98-107); Cholesterol 83 mg/dL (200); EST Glomerular Filtration Rate 83 mL/min (>60); Est Glom Filt Rate - Afr Amer 101 mL/min (>60); Globulin 3.8 g/dL (2.2-4.2); Glucose 142 mg/dL (74-106); Potassium 4.1 mmol/L (3.5-5.1); Protein, Total 7.6 g/dL (6.4-8.2); Sodium Level 138 mmol/L (136-145); Triglycerides 41 mg/dL
[2020-06-13 09:38] LABS: Anion Gap 3 (5-15); High Density Lipoprotein 45 mg/dL; Very Low Density Lipoprotein 8 mg/dL (5-40)
[2020-06-13 09:40] LABS: Vitamin D,25 Hydroxy 64.6 ng/mL
== END ==
DX: D69.6 Thrombocytopenia, unspecified (principal); E11.9 Type 2 diabetes mellitus without complications; E78.5 Hyperlipidemia, unspecified; I10 Essential (primary) hypertension; E55.9 Vitamin D deficiency, unspecified
CPT/HCPCS: 36415; 80053; 80061; 82306; 83036; 85025

== ENCOUNTER → 2020-10-22 07:09 | Outpatient (CLI) | payer MEDICAID, SELFPAY ==
[2020-04-11 22:29] VITALS: BMI 35.5
--- NOTE | 2020-10-22 07:12 | RAD_ITS ---
STUDY: X-RAY - LEFT SHOULDER REASON FOR EXAM: Male, 55 years old. PAIN TECHNIQUE: 4 view(s) of the shoulder. COMPARISON: None. FINDINGS: Normal glenohumeral articulation. There is widening of the AC joint, with displacement of the clavicle, consistent with a Type III acromioclavicular joint separation. Extensive calcification along the inferior aspect of the clavicle likely related to the acromioclavicular joint separation. Normal acromion. Normal humeral head and visualized proximal humerus. The soft tissue structures are unremarkable. Normal visualized pulmonary apex. RAD/Shoulder min 2 Views IMPRESSION: Chronic grade 3 acromioclavicular joint separation with extensive calcification along the inferior aspect of the distal clavicle. Electronically Signed: Manjit Kennedy MD at 7:49 EDT Tel , Service support ,
== END ==
DX: M25.512 Pain in left shoulder (principal)
CPT/HCPCS: 73030

== ENCOUNTER 2020-12-09 07:00 | Outpatient (RCR) | payer MEDICAID, SELFPAY ==
[2020-11-02 09:07] VITALS: BMI 36.0
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
--- NOTE | 2020-12-09 07:50 | HP.PTDCSUM ---
It has been my pleasure to treat RONALD IQBAL referred by Dr. Osmin Kapadia DO, with the diagnosis of L shoulder AC seperation, brachial plexopathy for a total of 9 visit(s). Discharge Date: 12/09/20 Please see the following information for a summary of their discharge status. Subjective: Not much pain lately due to injection. Still tingles in the arm much of the time. Worse with activity. motion feels about the same, can't get behind him. Strength is improving. Can't wash back with that arm. Chores can be difficult. L shoulder Pain Intensity (Out of 10): 0 % Improvement: 25 Objective/Function: L flexion 90, abd 80 adn SLA flexion 90, feels catch that will not allow him to go any further. 33 ext rotation adn PSIS IR. PROM 110 flexion, 100 abd, 50 ext rotation and 40 IR at 80 abd. Strength is still about 4-/5 in all L shoulder adn elbow tests initially but one second in it gives and he cannot hold the contraction. Still holds L arm very protrected despite repeated verbal cues. Still max tender at AC joint on the left. Pt frustrated with sow progress despite encouragement from the therapist that his pain is down adn motion slowly improving. He wishes to check with doctor before cotninuing with any PT but willing to keep doing his home strength and ROM. Goal 1:: I appropr HEP for ROM and strength L shoulder Goal Progress: band and ROM Goal 2:: Patient have 120 AROM elevation and 45 ext rotation to improve function L shoulder without increased pain Goal Progress: slow Goal 3:: Quickdash score 20 or less Goal Progress: Not Progressing Goal 4:: Pt hold arm in relaxed psoition without VC upon standing. Goal Progress: still guarded Goal 5:: Pt feel 50% better in L shoulder pain and function, sleep without shoulder interruption Goal Progress: 25% Plan: Due to patients frustration, he will schedule with doctor for any other options. Would be happy to cotninue to see patient if no other good options exist, otherwise pt to continue HEP and will d/c PT. Discharge Comments: Back to doctor for other viable options based on patients If there are questions or concerns regarding this patient's physical therapy, please feel free to call me at [phone]. Thank you for the referral of this patient. Sincerely, Jaime Sweet, DPT, OCS, CSCS
== END 2020-12-09 11:28 | disposition home or self-care (01) ==
LOC: PT 07:00
PROVIDERS: Referring Provider Orthopaedic Surgery; Visit Provider Orthopaedic Surgery
DX: S43.102D Unspecified dislocation of left acromioclavicular joint, subsequent encounter (principal); M25.612 Stiffness of left shoulder, not elsewhere classified
CPT/HCPCS: 97014; 97110; 97140; 97162; 97164; G0283

== ENCOUNTER → 2020-12-19 08:10 | Outpatient (CLI) | payer MEDICAID, SELFPAY ==
[2020-11-02 09:07] VITALS: BMI 36.0
[2020-12-19 09:00] LABS: Anion Gap 7 (5-15); BUN 15 mg/dL (7-18); BUN/Creat Ratio 14.2 RATIO (10-20); Calcium,Total 8.6 mg/dL (8.5-10.1); Chloride 104 mmol/L (98-107); Creatinine, Serum 1.06 mg/dL (0.70-1.30); EST Glomerular Filtration Rate 78 mL/min (>60); Est Glom Filt Rate - Afr Amer 94 mL/min (>60); Glucose 193 mg/dL (74-106); Potassium 4.2 mmol/L (3.5-5.1); Sodium Level 142 mmol/L (136-145)
[2020-12-19 09:07] LABS: Hemoglobin A1c 6.5 % (3.8-5.6)
== END ==
DX: E11.9 Type 2 diabetes mellitus without complications (principal)
CPT/HCPCS: 36415; 80048; 83036

== ENCOUNTER → 2021-03-15 10:00 | Outpatient (CLI) | payer MEDICAID, SELFPAY ==
[2021-03-15 11:34] LABS: AST(SGOT) 33 U/L (15-37); Alanine Aminotransfer ALT/SGPT 49 U/L (16-61); Albumin, Serum 3.8 g/dL (3.2-5.0); Alkaline Phosphatase 67 U/L (45-117); Anion Gap 3 (5-15); BUN 19 mg/dL (7-18); Calcium,Total 8.9 mg/dL (8.5-10.1); Chloride 105 mmol/L (98-107); Cholesterol 88 mg/dL (200); Creatinine, Serum 1.12 mg/dL (0.70-1.30); EST Glomerular Filtration Rate 73 mL/min (>60); Est Glom Filt Rate - Afr Amer 88 mL/min (>60); Globulin 3.7 g/dL (2.2-4.2); Glucose 161 mg/dL (74-106); High Density Lipoprotein 45 mg/dL; PSA,Total - Annual Screen 0.44 ng/mL (0.00-4.00); Potassium 4.8 mmol/L (3.5-5.1); Protein, Total 7.5 g/dL (6.4-8.2); Sodium Level 137 mmol/L (136-145); Triglycerides 43 mg/dL; Very Low Density Lipoprotein 9 mg/dL (5-40)
== END ==
PROVIDERS: PCP Nurse Practitioner Adult Health; Referring Provider Nurse Practitioner Adult Health; Visit Provider Nurse Practitioner Adult Health
DX: E11.9 Type 2 diabetes mellitus without complications (principal); E78.5 Hyperlipidemia, unspecified; Z12.5 Encounter for screening for malignant neoplasm of prostate
CPT/HCPCS: 36415; 80053; 80061; 84153; G0103

== ENCOUNTER → 2021-06-26 07:59 | Outpatient (CLI) | payer MEDICAID, SELFPAY ==
[2021-06-26 10:47] LABS: Protein, Urine (Random) 32.7 mg/dL (<11.9); Protein:Creat Ratio 170 mg/g CRE (0-200)
== END ==
PROVIDERS: Referring Provider Nurse Practitioner Adult Health; Visit Provider Nurse Practitioner Adult Health
DX: E11.9 Type 2 diabetes mellitus without complications (principal)
CPT/HCPCS: 82570; 84156

== ENCOUNTER 2022-11-05 18:35 | Emergency (ER) | payer MEDICAID, SELFPAY ==
[2022-11-05 18:36] VITALS: BP 158/80; PULSE 117; RESP 24; TEMP 37.3; O2SAT 97
--- NOTE | 2022-11-05 19:42 | EKG12_ITS ---
Test Reason : CP Blood Pressure : / mmHG Vent. Rate : 124 BPM Atrial Rate : 124 BPM P-R Int : 116 ms QRS Dur : 068 ms QT Int : 294 ms P-R-T Axes : 060 051 034 degrees QTc Int : 422 ms Sinus tachycardia Otherwise normal ECG Confirmed by SHAMIKA PAYNE, SUDHAKAR ([id number]), continuity editor PAOLA SALGUERO ([id number]) on 11/08/2022 9:13:54 AM Referred By: Se Crawford Confirmed By:SUDHAKAR WICK MD
[2022-11-05 20:12] VITALS: BMI 34.7
[2022-11-05 20:13] VITALS: BP 169/94; PULSE 114; RESP 14
[2022-11-05] MEDS: 0.9% Normal Saline 1,000 ML 1000 ML IV (20:18)
[2022-11-05 20:19] LABS: Absolute Lymphocyte Count 0.57 X10^3/uL (0.83-4.51); Absolute Neutrophil Count 12.1 X10^3/uL (2.0-7.7); Basophil# 0.02 X10^3/uL; Basophil% 0.1 % (0-1); Hematocrit 43.3 % (40-54); Hemoglobin 15.6 g/dL (13.0-16.5); Lymphocyte # 0.57 X10^3/ul (0.83-4.51); Lymphocyte % 4.2 % (19-41); Mean Corpuscular Hgb 31.5 pg (27.0-32.0); Mean Corpuscular Volume 87.3 fL (80-94); Mean Platelet Vol. 10.6 fl (6.2-12.0); Monocyte# 0.81 X10^3/uL; NRBC Flagged by Analyzer 0 % (0-5); Neutrophil # 12.08 X10^3/uL (2.7-7.7); Neutrophil % 89.3 % (47-70); POSITIVE DIFFERENTIAL YES; Platelet Count 126 K/mm3 (150-450); RBC Distribution Width CV 12.2 % (11.6-14.6); RBC Distribution Width SD 38.3 fl (35.1-43.9); Red Blood Count 4.96 M/mm3 (4.6-6.2); White Blood Count 13.5 K/mm3 (4.4-11.0)
[2022-11-05] MEDS: Famotidine 200 MG/20 ML MDV 20 MG in 0.9% Normal Saline (Pres. free 8 ML 300 MG IV (20:19)
[2022-11-05] MEDS: Ondansetron 4 MG/2 ML Vial IV (20:19)
[2022-11-05 20:25] LABS: Differential Indicated SCAN CRITERIA MET
--- NOTE | 2022-11-05 20:27 | ED.RN ---
PHONE CALL PLACED TO PT'S MOTHER JALEN FOR CLARIFICATION ON WHAT PROMPTED 911 CALL. MOTHER STATES LAST NIGHT PT WAS MAKING STATEMENTS OF I'M READY TO END IT ALL, I WANT BY [facility]IGN[facility] WELL MAKING STATEMENTS OF WANTING TO GO TO [place] TO . MOTHER ALSO STATES PT DID SAY I'D NEVER LEAVE MY SON. MOTHER STATES SHE ATTEMPTED TO CALL DAUGHTER ALL DAY WITH NO ANSWER. MOTHER WENT TO PT'S HOUSE, FOUND HER CONFUSED AND INAPPROPRIATE. MOTHER GAVE PT NASAL NARCAN PT HAS A LONG HISTORY OF PAIN MEDICATION ABUSE. MOTHER NARCAN DID NOT IMPROVE PT STATUS SO SHE CALLED 911. PER MOTHER PT'S SON STATED SHE WAS INCONTINENT OF BOWELS THIS AM AND FACE WAS CONTORTED. MOTHER STATES PT IS A LIAR AND CONFABULATOR, ALSO ABUSES ETOH.
[2022-11-05 20:38] LABS: Anion Gap 6 (5-15); BUN 15 mg/dL (7-18); BUN/Creat Ratio 12.6 RATIO (10-20); Calcium,Total 9.9 mg/dL (8.5-10.1); Chloride 100 mmol/L (98-107); Creatinine, Serum 1.19 mg/dL (0.70-1.30); EST Glomerular Filtration Rate 67 mL/min (>60); Est Glom Filt Rate - Afr Amer 82 mL/min (>60); Estimated Creatinine Clearance 63.29 ml/min; Glucose 270 mg/dL (74-106); Potassium 3.8 mmol/L (3.5-5.1); Sodium Level 135 mmol/L (136-145); Troponin-I HS 5 pg/mL (3.0-78.0)
--- NOTE | 2022-11-05 21:02 | EDS_ITS ---
HPI History of Present Illness Chief Complaint: Chest Pain Detail of Chief Complaint: Chest pain described as burning sensation since September 05 Informant: patient Onset/Context/Timing Onset: Days Context: Sudden Onset Timing: Continuous Quality: Burning Location: From the xiphoid process to the suprasternal notch Current Severity: Mild Maximum Severity: Moderate Worsened by: Vomiting Relieved by: Not Associated Symptoms Associated Symptoms: No dyspnea, diaphoresis and see HPI narrative Narrative Narrative: Patient is a 57-year-old male with history of type 2 diabetes who presents with a burning sensation in his chest. He reports nausea and vomiting started Saturday. He states on Saturday and of last week he vomited 8-10 times per day. On Saturday and Saturday he vomited 2-3 times. Today he has vomited 12 times. He reports diarrhea initially. He has not noted any blood or mucus in his diarrhea. He has no history of pseudomembranous enterocolitis. He had no ill contacts. He denies fever or chills. He does report thirst and dry mouth as well as lightheadedness with standing. He denies hematemesis, melena or hematochezia. He does not have a history of VTE or coronary disease. He has had chest pain in the past which is not cardiac in etiology. He denies leg pain, swelling discoloration. Prior similar symptoms: Yes Recent Illness/Hospitalization: No PFSH [facility] Medical History Diabetes HTN (hypertension) Home Medications glimepiride 2 mg tablet 2 mg PO BID dm 08/16/17 [History Last Taken 04/11/20] ergocalciferol (vitamin D2) 1,250 mcg (50,000 unit) capsule 50,000 unit PO GLASS supplement 04/11/20 [History Last Taken 04/10/20] metformin 1,000 mg tablet 1,000 mg PO BID dm ##0 04/13/20 [Rx Last Taken 04/11/20] meloxicam 15 mg tablet (Mobic) 15 mg PO DAILY #30 tabs 11/02/20 [Rx Last Taken Unknown] famotidine 40 mg tablet (Pepcid) 40 mg PO DAILY #10 tabs 11/05/22 [Rx Last Taken Unknown] ondansetron 4 mg disintegrating tablet 4 mg PO Q8H PRN PRN Nausea #10 tabs 11/05/22 [Rx Last Taken Unknown] Allergy/AdvReac Type Severity Reaction Status Date / Time No Known Allergies Allergy Verified 11/05/22 18:39 Family History Mother Diabetes Father Myocardial infarction Brother Diabetes Surgical History History of left heart catheterization (04/13/20) Tracheostomy in place Social History (Updated 11/05/22 @ 21:[address] Se Crawford MD) household members: family Smoking Status: Former smoker alcohol intake: never substance use type: does not use ROS ROS ED Constitutional Constitutional ED: Denies chills, fever(s), subjective, sweats or weight loss Eyes Eyes: Denies blurry vision, change in vision or diplopia ENT ENT ED: Denies ear pain, rhinorrhea or sore throat Cardiovascular Cardiovascular: Reports chest pain and racing heartbeat; Denies orthopnea, palpitations or paroxysmal nocturnal dyspnea Respiratory/Chest Respiratory/Chest: Reports cough; Denies dyspnea, dyspnea on exertion, orthopnea or paroxysmal nocturnal dyspnea Gastrointestinal Gastrointestinal: Reports diarrhea, nausea and vomiting; Denies abdominal pain, constipation or melena Genitourinary Genitourinary ED: Denies dysuria or urinary frequency Musculoskeletal Musculoskeletal: Denies arthralgias, back pain, myalgias or neck pain Neurologic Neurologic: Reports weakness; Denies headache(s) or paresthesias Psychiatric Psychiatric: Reports anxiety Endocrine Endocrinology: Denies cold intolerance or heat intolerance Hematologic/Lymphatic Hematologic/Lymphatic: Reports systems reviewed and no addt'l complaints, except as documented EXAM Physical Exam Const Vital Signs: 11/05/22 18:36 11/05/22 20:13 11/05/22 20:13 Temperature 99.1 F Temperature Source Temporal Pulse Rate 117 H 114 H Respiratory Rate 24 H 14 Respiratory Effort Normal Non-Labored Blood Pressure 158/80 H 169/94 H Blood Pressure Mean 106 119 Pulse Ox 97 Oxygen Delivery Method Room Air 11/05/22 21:16 Temperature Temperature Source Pulse Rate 112 H Respiratory Rate 23 H Respiratory Effort Blood Pressure 169/91 H Blood Pressure Mean 117 Pulse Ox Oxygen Delivery Method Positive well nourished, well developed and obese Constitutional Narrative: Patient does not appear well. General Appearance ED: well developed; Negative for cyanotic, diaphoretic or pallor Nutritional Appearance: obese HEENT Reports dry mucous membranes HEENT Narrative: Head is atraumatic normocephalic. Ears are normal. Nares patent with no discharge. Posterior pharynx out erythema or exudate. You have his mid line. Mouth ED: Yes dry mucous membranes Mouth: dry mucous membranes Eyes PERRL and EOMs intact bilaterally General Eye ED: Negative for pale conjunctiva or scleral icterus Neck no lymphadenopathy, supple and no JVD Chest Wall inspection of chest normal and palpation of chest normal Resp normal respiratory effort and clear to auscultation bilaterally Cardio regular rhythm, S1 normal heart sound, S2 normal heart sound and no murmurs Rate: tachycardic GI normal to inspection, nondistended, normoactive bowel sounds, non-distended and no masses; Negative for non-tender or hepatosplenomegaly Palpation: soft and tender epigastric Back/Spine no CVA tenderness Thoracic Spine / Upper Back: Negative for thoracic spinal tenderness Lumbar Spine / Lower Back: Negative for lumbar spinal tenderness Extremity normal to inspection General Extremety ED: Negative for edema or tenderness General Extremity: Negative for edema Neuro No oriented x3, No CN's II-XII intact bilaterally and No no sensory deficits noted Sensorium / Orientation: Negative for alert Psych mental status grossly normal Skin no rashes or lesions noted, no wounds and skin turgor normal General Skin Exam: Negative for jaundice or pallor MDM MDM MDM Narrative Medical decision making narrative: With history of diabetes hypertension need to rule out atypical presentation for cardiac. Suspect this is due to vomiting. IV fluids were ordered. Zofran was ordered for his nausea and vomiting. He also received Pepcid. Wound was reassessed at 08/15/2006 he reported improvement. CBC was obtained to assess H&H. Basic metabolic panel was obtained to assess creatinine and renal function. As well as glucose and anion gap since he is diabetic. When patient was reassessed at 08/15/2004 he reports improvement. He still having some discomfort. A GI cocktail was ordered Lab Data Attestation: I reviewed the patient's lab results. Lab results narrative: White count is elevated which is nonspecific and not inconsistent with nausea vomiting diarrhea. Basic metabolic panel is remarked for glucose of 270 with a normal CO2 and anion gap. Troponin is less than 7 with 48 hours of pain. Labs: Laboratory Results - last 24 hr 11/05/22 11/05/22 20:10 20:10 WBC 13.5 H RBC 4.96 Hgb 15.6 Hct 43.3 MCV 87.3 MCH 31.5 MCHC 36.0 RDW Std Deviation 38.3 RDW Coeff of Gonzalez 12.2 Plt Count 126 L MPV 10.6 Immature Gran % (Auto) 0.400 Neut % (Auto) 89.3 H Lymph % (Auto) 4.2 L [place] % (Auto) 6.0 Eos % (Auto) 0.0 Baso % (Auto) 0.1 Absolute Neuts (auto) 12.1 H Absolute Lymphs (auto) 0.57 L Nucleated RBC % 0 Differential Comment SCANNED Sodium 135 L Potassium 3.8 Chloride 100 Carbon Dioxide 29.0 Anion Gap 6 BUN 15 Creatinine 1.19 Estim Creat Clear Calc 63.29 Est GFR (MDRD) Af Amer 82 Est GFR (MDRD) Non-Af 67 BUN/Creatinine Ratio 12.6 Glucose 270 H Calcium 9.9 Troponin I High Sens 5 EKG Initial EKG: Interpretation: Sinus Tachycardia (Rate is 124. CO interval is 160 ms. Cures duration 68 ms. QT duration 294 ms. Roy is normal.) Treatment and Re-Evaluation :: Patient lasted 20-23. He does feel markedly better. He is no longer vomiting. He did pass p.o. challenge. Plan is to discharge to home with antiemetic and H2 germania. Discharge Plan Triage Chief Complaint: Chest Pain ED Provider: TySe Dx/Rx/DC Orders Clinical Impression: Acute epigastric pain, Diabetes, Chest pain, Moderate nausea and vomiting, Diarrhea, Sinus tachycardia, Acute dehydration, Type 2 diabetes mellitus with hyperglycemia, Heartburn Instructions: ED Dehydration (Adult), ED Vomiting (Adult) Prescriptions: New ondansetron [ondansetron] 4 mg tablet,disintegrating 4 mg PO Q8H PRN PRN (Reason: Nausea) Qty: 10 0RF famotidine [Pepcid] 40 mg tablet 40 mg PO DAILY Qty: 10 0RF No Action glimepiride 2 mg tablet 2 mg PO BID meloxicam [Mobic] 15 mg tablet 15 mg PO DAILY Qty: 30 0RF ergocalciferol (vitamin D2) 1,250 mcg (50,000 unit) capsule 50,000 unit PO GLASS Label Comments: TAKE 1 CAPSULE BY MOUTH ONCE A WEEK metformin 1,000 MG tablet 1,000 mg PO BID Qty: 0 0RF Rx Instructions: RESUME ON 04/14/20 Primary Care Provider: Medical Deepti Gallego Referrals: [facility] Deepti Gallego [Primary Care Provider] - Disposition Disposition: Home, Self Care
[2022-11-05] MEDS: Mag Hydrox/Al Hydrox/Simeth 30 ML UDC PO (21:14)
[2022-11-05 21:16] VITALS: BP 169/91; PULSE 112; RESP 23
[2022-11-05 21:44] LABS: Differential Comment SCANNED
[2022-11-05 22:37] VITALS: BP 154/81; PULSE 107; RESP 16; O2SAT 98
== END 2022-11-05 22:38 | disposition home or self-care (01) ==
PROVIDERS: Emergency Provider Emergency Medicine; Referring Provider Emergency Medicine; Visit Provider Emergency Medicine
DX: R10.13 Epigastric pain (principal); E11.65 Type 2 diabetes mellitus with hyperglycemia; R11.2 Nausea with vomiting, unspecified; R19.7 Diarrhea, unspecified; R00.0 Tachycardia, unspecified; E86.0 Dehydration; Z87.891 Personal history of nicotine dependence
CPT/HCPCS: 80048; 84484; 85025; 93005; 96361; 96374; 99283; J7030; J2405; J3490

== ENCOUNTER → 2022-11-19 | Outpatient (CLI) | payer MEDICAID, SELFPAY ==
[2022-11-19 10:07] LABS: Hemoglobin A1c 6.5 % (3.8-5.6)
[2022-11-19 10:34] LABS: ALB/GLOB Ratio 0.8 RATIO (0.9-2.4); AST(SGOT) 28 U/L (15-37); Alanine Aminotransfer ALT/SGPT 64 U/L (16-61); Albumin, Serum 3.4 g/dL (3.2-5.0); Alkaline Phosphatase 76 U/L (45-117); Anion Gap 8 (5-15); BUN 13 mg/dL (7-18); BUN/Creat Ratio 12.5 RATIO (10-20); Calcium,Total 9.4 mg/dL (8.5-10.1); Chloride 103 mmol/L (98-107); Cholesterol 68 mg/dL (200); Creatinine, Serum 1.04 mg/dL (0.70-1.30); EST Glomerular Filtration Rate 79 mL/min (>60); Est Glom Filt Rate - Afr Amer 95 mL/min (>60); Globulin 4.3 g/dL (2.2-4.2); Glucose 202 mg/dL (74-106); High Density Lipoprotein 37 mg/dL; PSA,Total - Annual Screen 0.83 ng/mL (0.00-4.00); Potassium 4.7 mmol/L (3.5-5.1); Protein, Total 7.7 g/dL (6.4-8.2); Sodium Level 139 mmol/L (136-145); Triglycerides 44 mg/dL; Very Low Density Lipoprotein 9 mg/dL (5-40)
[2022-11-19 10:37] LABS: Microalbumin,Random Urine 47.9 mg/L (NO RANGE EST.)
[2022-11-23 13:08] LABS: Testosterone, % Free 1.81 % (1.50-4.20); Testosterone, Free 6.46 ng/dL (5.00-21.00); Testosterone, Total 357 ng/dL (264-916)
== END | disposition home or self-care (01) ==
PROVIDERS: Referring Provider Nurse Practitioner Family; Visit Provider Nurse Practitioner Family
DX: E11.9 Type 2 diabetes mellitus without complications (principal); I10 Essential (primary) hypertension; E78.5 Hyperlipidemia, unspecified; N52.9 Male erectile dysfunction, unspecified; Z12.5 Encounter for screening for malignant neoplasm of prostate
CPT/HCPCS: 84153; 36415; 80053; 80061; 82043; 83036; 84402; 84403; G0103

== ENCOUNTER → 2023-05-24 | Outpatient (CLI) | payer MEDICAID, SELFPAY ==
[2023-05-24 09:21] LABS: Hematocrit 42.9 % (40-54); Hemoglobin 15.1 g/dL (13.0-16.5); Mean Corp Hgb Conc 35.2 g/dL (32-36); Mean Corpuscular Hgb 31.3 pg (27.0-32.0); POSITIVE COUNT YES; Platelet Count 85 K/mm3 (150-450); RBC Distribution Width CV 11.9 % (11.6-14.6); RBC Distribution Width SD 38.7 fl (35.1-43.9); Red Blood Count 4.82 M/mm3 (4.6-6.2); White Blood Count 6.1 K/mm3 (4.4-11.0)
[2023-05-24 09:39] LABS: AST(SGOT) 13 U/L (15-37); Alanine Aminotransfer ALT/SGPT 34 U/L (16-61); Albumin, Serum 3.6 g/dL (3.2-5.0); Alkaline Phosphatase 59 U/L (45-117); Anion Gap 5 (5-15); BUN 17 mg/dL (7-18); Chloride 103 mmol/L (98-107); Cholesterol 73 mg/dL (200); Creatinine, Serum 1.21 mg/dL (0.70-1.30); EST Glomerular Filtration Rate 66 mL/min (>60); Est Glom Filt Rate - Afr Amer 80 mL/min (>60); Globulin 3.6 g/dL (2.2-4.2); Glucose 251 mg/dL (74-106); High Density Lipoprotein 42 mg/dL; Potassium 4.8 mmol/L (3.5-5.1); Protein, Total 7.2 g/dL (6.4-8.2); Sodium Level 138 mmol/L (136-145); Triglycerides 58 mg/dL; Very Low Density Lipoprotein 12 mg/dL (5-40)
[2023-05-24 09:50] LABS: Scan Indicated on CBC? Y/N YES- FLAGS NOTED
[2023-05-24 09:52] LABS: Microalbumin,Random Urine 79.9 mg/L (NO RANGE EST.); Microalbumin:Creatinine Ratio 47.8 mg/g CRE (<30 mg/g CRE)
[2023-05-24 10:19] LABS: Differential Comment SCANNED
== END | disposition home or self-care (01) ==
LOC: LAB 07:51
DX: E78.5 Hyperlipidemia, unspecified (principal); E11.9 Type 2 diabetes mellitus without complications; I10 Essential (primary) hypertension
CPT/HCPCS: 36415; 80053; 80061; 82043; 82570; 85027

== ENCOUNTER → 2024-04-02 | Outpatient (CLI) | payer MEDICAID, SELFPAY ==
[2024-04-02 10:55] LABS: Absolute Lymphocyte Count 1.11 X10^3/uL (0.83-4.51); Absolute Neutrophil Count 4.1 X10^3/uL (2.0-7.7); Basophil# 0.07 X10^3/uL; Basophil% 1.2 % (0-1); Eosinophil# 0.08 X10^3/uL; Eosinophils% 1.3 % (0-5); Hemoglobin 15.7 g/dL (13.0-16.5); Lymphocyte # 1.11 X10^3/ul (0.83-4.51); Lymphocyte % 18.5 % (19-41); Mean Corp Hgb Conc 36.5 g/dL (32-36); Mean Corpuscular Hgb 31.3 pg (27.0-32.0); Mean Corpuscular Volume 85.8 fL (80-94); Mean Platelet Vol. 11.1 fl (6.2-12.0); Monocyte# 0.62 X10^3/uL; Monocyte% 10.3 % (0-10); NRBC Flagged by Analyzer 0 % (0-5); Neutrophil # 4.09 X10^3/uL (2.7-7.7); Neutrophil % 68.2 % (47-70); POSITIVE COUNT YES; Platelet Count 76 K/mm3 (150-450); RBC Distribution Width CV 12.4 % (11.6-14.6); RBC Distribution Width SD 38.3 fl (35.1-43.9); Red Blood Count 5.01 M/mm3 (4.6-6.2)
[2024-04-02 11:21] LABS: Microalbumin,Random Urine 43.2 mg/L (NO RANGE EST.)
[2024-04-02 11:36] LABS: AST(SGOT) 28 U/L (15-37); Alanine Aminotransfer ALT/SGPT 72 U/L (16-61); Albumin, Serum 3.8 g/dL (3.2-5.0); Alkaline Phosphatase 77 U/L (45-117); Anion Gap 9 (5-15); BUN 13 mg/dL (7-18); BUN/Creat Ratio 10.4 RATIO (10-20); Calcium,Total 9.2 mg/dL (8.5-10.1); Chloride 103 mmol/L (98-107); Cholesterol 69 mg/dL (200); Creatinine, Serum 1.25 mg/dL (0.70-1.30); EST Glomerular Filtration Rate 63 mL/min (>60); Est Glom Filt Rate - Afr Amer 77 mL/min (>60); Globulin 3.8 g/dL (2.2-4.2); Glucose 257 mg/dL (74-106); High Density Lipoprotein 43 mg/dL; PSA,Total - Annual Screen 0.56 ng/mL (0.00-4.00); Potassium 4.9 mmol/L (3.5-5.1); Protein, Total 7.6 g/dL (6.4-8.2); Sodium Level 138 mmol/L (136-145); Triglycerides 45 mg/dL; Very Low Density Lipoprotein 9 mg/dL (5-40)
== END | disposition home or self-care (01) ==
LOC: LAB.FUTURE 08:50
PROVIDERS: Visit Provider Nurse Practitioner Family
DX: I10 Essential (primary) hypertension (principal); E11.9 Type 2 diabetes mellitus without complications; E78.5 Hyperlipidemia, unspecified; Z12.5 Encounter for screening for malignant neoplasm of prostate
CPT/HCPCS: 84153; 36415; 80053; 80061; 82043; 84443; 85025; G0103

== ENCOUNTER → 2024-08-26 | Outpatient (CLI) | payer MEDICAID, SELFPAY ==
[2024-08-26 13:57] LABS: ALB/GLOB Ratio 0.9 RATIO (0.9-2.4); AST(SGOT) 43 U/L (15-37); Alanine Aminotransfer ALT/SGPT 54 U/L (16-61); Albumin, Serum 3.9 g/dL (3.2-5.0); Alkaline Phosphatase 80 U/L (45-117); Anion Gap 9 (5-15); BUN 15 mg/dL (7-18); Calcium,Total 9.7 mg/dL (8.5-10.1); Chloride 103 mmol/L (98-107); Cholesterol 75 mg/dL (200); Creatinine, Serum 1.07 mg/dL (0.70-1.30); EST Glomerular Filtration Rate 76 mL/min (>60); Est Glom Filt Rate - Afr Amer 92 mL/min (>60); Globulin 4.2 g/dL (2.2-4.2); Glucose 205 mg/dL (74-106); High Density Lipoprotein 51 mg/dL; Potassium 4.4 mmol/L (3.5-5.1); Protein, Total 8.1 g/dL (6.4-8.2); Sodium Level 134 mmol/L (136-145); Triglycerides 47 mg/dL; Very Low Density Lipoprotein 9 mg/dL (5-40)
[2024-08-26 14:05] LABS: Microalbumin,Random Urine 37.1 mg/L (NO RANGE EST.)
== END | disposition home or self-care (01) ==
LOC: VSLAB 09:22
PROVIDERS: PCP Nurse Practitioner Family; Visit Provider Nurse Practitioner Family
DX: I10 Essential (primary) hypertension (principal); E11.9 Type 2 diabetes mellitus without complications; E78.5 Hyperlipidemia, unspecified
CPT/HCPCS: 36415; 80053; 80061; 82043; 84443